=== PATIENT | female | born 1995 | race Two or more races ===

== ENCOUNTER 2021-03-11 15:20 | Emergency (ER) | payer SELFPAY ==
[~2021-03-11] VITALS: Ht 167.6 cm; Wt 62.0 kg
[2021-03-11] MEDS ORDERED: SODIUM CHLORIDE 0.9% 1,000 ML IV ONE (16:30)
[2021-03-11 17:50] VITALS: BP 128/85
[2021-03-11 18:22] LABS: BASOPHILS % 0.6 % (0.0-2.0); EOSINOPHILS % 0.7 % (0.0-5.0); HEMATOCRIT. 37.5 % (36.0-48.0); HEMOGLOBIN. 12.9 g/dL (12.0-16.0); LYMPHOCYTES % 21.1 % (20.0-50.0); MEAN CORPUSCULAR HEMOGLOBIN 29.7 pg (28.0-32.0); MEAN CORPUSCULAR VOLUME 86.8 fL (81.0-99.0); MEAN PLATELET VOLUME 8.3 fl (7.4-10.4); MONOCYTES % 8.9 % (2.0-8.0); NEUTROPHILS % 68.7 % (40.0-76.0); PLATELET 256 x1000/uL (130-400); RED BLOOD CELL COUNT 4.32 mill/uL (4.2-5.4)
[2021-03-11 18:28] LABS: CHLORIDE 104 mEq/L (98-107)
[2021-03-11] MEDS ORDERED: PROMETHAZINE HCL 25MG TABLET PO PRN (18:30)
[2021-03-11 18:52] LABS: B-HCG QUANTITATIVE 48582 mIU/mL (<3)
[2021-03-11] MEDS ORDERED: PROM25TA13 MT (19:17)
== END 2021-03-11 19:47 | disposition home or self-care (01) ==
LOC: ER 15:20
DX: O26.891 Other specified pregnancy related conditions, first trimester (principal); R11.2 Nausea with vomiting, unspecified; I49.8 Other specified cardiac arrhythmias; Z3A.01 Less than 8 weeks gestation of pregnancy; Z91.011 Allergy to milk products; Z91.018 Allergy to other foods
CPT/HCPCS: 36415; 76801; 80053; 81025; 84702; 85025; 86850; 86900; 86901; 93005; 99285; J7030

== ENCOUNTER 2021-11-20 19:46 | Emergency (ER) | payer SELFPAY ==
[~2021-11-20] VITALS: Ht 167.6 cm; Wt 55.0 kg
[~2021-11-20 19:46] MED LIST: PROM25TA13 MT
[2021-11-20] MEDS ORDERED: ACETAMINOPHEN 325MG TABLET PO ONE (20:30)
[2021-11-21 00:07] LABS: CHLORIDE 104 mEq/L (98-107)
[2021-11-21 00:18] LABS: BASOPHILS % 0.6 % (0.0-2.0); EOSINOPHILS % 0.6 % (0.0-5.0); HEMATOCRIT. 35.8 % (36.0-48.0); HEMOGLOBIN. 12.1 g/dL (12.0-16.0); LYMPHOCYTES % 15.2 % (20.0-50.0); MEAN CORPUSCULAR HEMOGLOBIN 29.4 pg (28.0-32.0); MEAN PLATELET VOLUME 8.2 fl (7.4-10.4); MONOCYTES % 6.6 % (2.0-8.0); PLATELET 288 x1000/uL (130-400); RED BLOOD CELL COUNT 4.11 mill/uL (4.2-5.4); RED CELL DISTRIBUTION WIDTH 14.7 % (11.6-14.6)
[2021-11-21 00:31] LABS: B-HCG QUANTITATIVE 27252 mIU/mL (<3)
[2021-11-21 09:54] VITALS: BP 103/44
== END 2021-11-21 10:02 | disposition home or self-care (01) ==
LOC: ER 19:46
DX: O45.8X2 Other premature separation of placenta, second trimester (principal); Z3A.15 15 weeks gestation of pregnancy
CPT/HCPCS: 36415; 73110; 73130; 76805; 80053; 81025; 84702; 85025; 86850; 86900; 99285